=== PATIENT | male | born 1955 | race African-American/Black ===

== ENCOUNTER 2016-06-07 05:54 | Emergency (ER) | payer OTHER ==
[~2016-06-07] VITALS: Ht 188 cm; Wt 117.0 kg
[~2016-06-07 05:54] MED LIST: ADVAIR HFA 230M12 GM INH; ATIVAN1 MG PO; BAYER CHEWABLE81 MG PO; COUMADIN 5 MG TA5 M1 PO; DIASTAT2.5 MG RC; DILANTIN100 MG PO; DILANTIN30 MG PO; DUONEB 2.5-0.5 M3 ML INH; KEFLEX500 MG PO; LEVAQUIN 500 M500 M2 PO; NEPHROCAPS SOFT1 CAP PO; NORCO 5-325 TA1 EACH PO; PHOSLO667 M1 PO; PRILOSEC 20 MG20 MG PO; RENAL MULTIVIT1 EACH PO; RENVELA800 MG PO; SENSIPAR90 MG PO; TEGRETOL XR100 MG PO; TOPROL XL25 MG PO; TUMS PO; VENTOLIN HFA 1818 GM INH; ZOFRAN ODT4 M1 PO
[2016-06-07] MEDS ORDERED: ANTIBIOTIC (06:10)
[2016-06-07 07:59] LABS: HEMATOCRIT 34.1 % (42.0-52.0); HEMOGLOBIN 10.9 gm/dL (14.0-18.0); MCH 29.5 pg (26.0-34.0); MCV 92.3 fL (80.0-100.0); RBC 3.69 mil/uL (4.50-6.00); RDW 19.3 % (10.5-14.5); WBC 10.5 thou/uL (4.0-11.0)
[2016-06-07 08:15] LABS: CALCIUM 8.2 mg/dL (8.5-10.1); CREATININE 12.5 mg/dL (0.6-1.3)
[2016-06-07 08:23] LABS: POTASSIUM 6.6 mmol/L (3.5-5.1)
== END 2016-06-07 09:07 | disposition home or self-care (01) ==
LOC: ER 05:54
PROVIDERS: Emergency Medicine
DX: S31.104D Unspecified open wound of abdominal wall, left lower quadrant without penetration into peritoneal cavity, subsequent encounter (principal); E11.22 Type 2 diabetes mellitus with diabetic chronic kidney disease; I12.0 Hypertensive chronic kidney disease with stage 5 chronic kidney disease or end stage renal disease; N18.6 End stage renal disease; Z99.2 Dependence on renal dialysis; Z95.5 Presence of coronary angioplasty implant and graft; K21.9 Gastro-esophageal reflux disease without esophagitis; Z86.2 Personal history of diseases of the blood and blood-forming organs and certain disorders involving the immune mechanism; X58.XXXD Exposure to other specified factors, subsequent encounter

== ENCOUNTER → 2016-08-04 | Outpatient (CLI) | payer OTHER ==
[~2016-08-04] VITALS: Ht 185.4 cm; Wt 114.3 kg
[~2016-08-04] MED LIST changes: +ANTIBIOTIC; +VASOTEC10 MG PO
[2016-08-04 09:01] VITALS: BP 166/79
== END ==
LOC: SPEC 08:45
DX: Z53.9 Procedure and treatment not carried out, unspecified reason (principal); R07.9 Chest pain, unspecified; N18.6 End stage renal disease; J18.9 Pneumonia, unspecified organism; M54.9 Dorsalgia, unspecified; I47.2 Ventricular tachycardia; E87.5 Hyperkalemia; Z79.82 Long term (current) use of aspirin; R56.9 Unspecified convulsions

== ENCOUNTER → 2016-08-09 | Outpatient (CLI) | payer OTHER ==
[~2016-08-09] VITALS: Ht 185.4 cm; Wt 115.2 kg
[~2016-08-09] MED LIST changes: -VASOTEC10 MG PO
[2016-08-09 09:26] VITALS: BP 129/50
== END ==
LOC: HYPER → SPEC 06:00 → HYPER 06:36
DX: Z49.01 Encounter for fitting and adjustment of extracorporeal dialysis catheter (principal); I10 Essential (primary) hypertension; K21.9 Gastro-esophageal reflux disease without esophagitis; E89.2 Postprocedural hypoparathyroidism; R56.9 Unspecified convulsions; F17.210 Nicotine dependence, cigarettes, uncomplicated

== ENCOUNTER 2016-08-21 16:28 | Inpatient (IN) | payer OTHER, BC ==
[~2016-08-21] VITALS: Ht 185.4 cm; Wt 109.3 kg
--- NOTE | ~2016-08-21 | EKG ---
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[facility] : 1955 Requested By: Leander Elliott Order Number: [id number] MD: Anil Jimenez Measurements Intervals [place] Rate: 97 P: 54 VT: 177 QRS: 8 QRSD: 127 T: 158 QT: 377 QTc: 479 Interpretive Statements Sinus rhythm Left bundle branch block Compared to ECG 01/31/2016 14:21:42 Left bundle-branch block now present Supraventricular tachycardia no longer present Ventricular premature complex(es) no longer present Electronically Signed On 08-22-2016 7:07:44 CDT by Anil Jimenez [email or web address] <ELECTRONICALLY SIGNED> By: Anil Jimenez MD, [facility] 08/22/16 0707 1630 1630 Anil Jimenez MD, [facility] /EPI
--- NOTE | ~2016-08-21 | HC ---
Former[facility] [place] [address] CONSULTATION Name: FARZANEH VELASQUEZ Room #: 457-P ADM IN ..#: [id number] Admission: 08/21/16 Attend Phys: Brad Lora MD Discharge: Date of : 57 Report #: [id number] THIS REPORT FOR: //name// CC: Brad LOPEZ DATE OF SERVICE: 08/22/2016 DATE OF SERVICE: 08/22/2016 PATIENT IDENTIFICATION: This 61-year-old male is well known to our service from chronic outpatient dialysis management as well as recurrent hospital admissions. He has a complicated medical history which includes longstanding end-stage renal disease secondary to diabetes mellitus. He has had major difficulties with dialysis access. He has no upper extremity access possibility remaining at this time. He has been dialyzing ____ tunneled femoral dialysis catheter. He was recently admitted for a catheter exchange and was found to have extensive clot requiring IVC filter placement. He was to have been discharged on Eliquis but was unable to afford this medication, so has not been taking any of that. He also has a history of previous left leg and abdominal wound, which has undergone extensive treatment. 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 This has since been discontinued, as his wound has improved. He missed his recent outpatient followup with Dr. Dave for ongoing wound care. He denies fevers, chills, sweats or other constitutional complaints. PAST MEDICAL HISTORY: Remarkable for diabetes mellitus, end-stage renal disease, chronic wound, hypertension and COPD. He has been evaluated for a previous pulmonary mass with negative findings. He has sleep apnea and uses CPAP regularly by his report. He has undergone previous parathyroidectomy. SOCIAL HISTORY: He continues to smoke approximately 1.5 pack of cigarettes daily. MEDICATIONS: On admission includes enalapril 10 mg daily, Tums one with meals, omeprazole 20 mg daily, Nephrocaps 1 daily, Advair inhaler, Renvela, baby aspirin 81 mg daily, albuterol inhaler. ALLERGIES: He has reported allergies to ALTEPLASE, METOPROLOL, MILK AND CHLORAPREP. REVIEW OF SYSTEMS: Remarkable for shortness of breath. He denies productive cough or hemoptysis. He denies chest pain or palpitations. He denies nausea, vomiting, diarrhea or constipation. [facility] [address] [place] [address] CONSULTATION Name: FARZANEH VELASQUEZ Room #: 457-P [facility] IN [facility]#: [id number] Admission: 08/21/16 Attend Phys: Brad Lora MD Discharge: Date of : 57 Report #: [id number] PHYSICAL EXAMINATION: GENERAL: Reveals well developed, chronically ill, debilitated male in no acute distress. VITAL SIGNS: Temperature 36.4, pulse 98, respirations 24, blood pressure 114/54. SKIN: Warm and dry. There is a tunneled catheter in the right femoral region. There is no surrounding erythema. EXTREMITIES: There is a dressing in the left lower abdomen, which was not removed. There was no foul odor. HEENT: The head is normocephalic and atraumatic. The sclerae are white. The pharynx is benign. NECK: Supple. LUNGS: Martinez are grossly clear to percussion and auscultation. CARDIOVASCULAR: Reveals a regular rate and rhythm without rub. ABDOMEN: Soft and nontender. NEUROLOGIC: Reveals the patient to be alert and cooperative. LABORATORY STUDIES: Available at this time include sodium 136, potassium 6.6, chloride 99, CO2 22, BUN 57, creatinine 11.9, glucose 163, calcium 6.8. White blood cell count 6500, hemoglobin 9.1, hematocrit 28.3, platelet count 164,000. ASSESSMENT: 1. End-stage renal disease for dialysis today. 2. Chronic obstructive pulmonary disease exacerbation. 3. Recent clot about femoral dialysis catheter post vena cava filter placement. 4. Ongoing abdominal wound care with no biopsy proof of calciphylaxis. 5. Diabetes mellitus. 6. Chronic obstructive pulmonary disease. PLAN: The patient is undergoing treatment for COPD exacerbation. We will perform dialysis today for management of his acute hyperkalemia. We will follow the patient closely with serial laboratory studies, I and O and daily weights. Please see orders. <ELECTRONICALLY SIGNED> By: Cruz Saldivar MD 08/23/16 0734 0946 1317 Cruz Saldivar MD /nt
[2016-08-21 16:29] VITALS: BP 109/57
[2016-08-21] MEDS ORDERED: VASOTEC10 MG PO (16:38)
[2016-08-21 17:08] LABS: ABSOLUTE NEUTROPHILS 4.3 thou/uL (1.4-8.2); BASOPHILS 0.6 % (0.0-2.0); EOSINOPHILS 7.1 % (0.0-3.0); HEMATOCRIT 28.3 % (42.0-52.0); HEMOGLOBIN 9.1 gm/dL (14.0-18.0); LYMPHOCYTES 17.9 % (24.0-44.0); MCH 29.8 pg (26.0-34.0); MCHC 32.1 g/dL (28.0-37.0); MCV 92.9 fL (80.0-100.0); MONOCYTES 7.7 % (1.0-8.0); PLATELET COUNT 164 thou/uL (150-400); POLYS 66.7 % (36.0-66.0); RBC 3.04 mil/uL (4.50-6.00); RDW 23.6 % (10.5-14.5); WBC 6.5 thou/uL (4.0-11.0)
[2016-08-21 17:11] LABS: ANION GAP 11 mmol/L (7-16); BUN 48 mg/dL (7-18); CALCIUM 6.8 mg/dL (8.5-10.1); CHLORIDE 102 mmol/L (98-107); CO2 24 mmol/L (21-32); CREATININE 10.7 mg/dL (0.7-1.3); GLUCOSE 95 mg/dL (74-106); POTASSIUM 4.7 mmol/L (3.5-5.1); SODIUM 137 mmol/L (136-145)
[2016-08-21 17:13] LABS: MANUAL DIFF NO
[2016-08-21 17:18] LABS: ALBUMIN 3.1 g/dL (3.4-5.0); ALKALINE PHOSPHATASE 81 U/L (46-116); SGOT 18 U/L (15-37); SGPT 10 U/L (30-65); TOTAL BILIRUBIN 0.4 mg/dL (<0.1-1.0); TOTAL PROTEIN 7.1 g/dL (6.4-8.2); TROPONIN-I < 0.04 ng/mL (<0.04-0.07)
[2016-08-21 19:03] VITALS: BP 99/49
[2016-08-22 03:11] VITALS: BP 114/55
[2016-08-22 04:21] LABS: HEMATOCRIT 30.9 % (42.0-52.0); HEMOGLOBIN 9.9 gm/dL (14.0-18.0); MCH 29.8 pg (26.0-34.0); MCHC 31.9 g/dL (28.0-37.0); MCV 93.1 fL (80.0-100.0); RBC 3.32 mil/uL (4.50-6.00); RDW 23.8 % (10.5-14.5); WBC 4.4 thou/uL (4.0-11.0)
[2016-08-22 04:39] LABS: CALCIUM 7.3 mg/dL (8.5-10.1)
[2016-08-22 04:47] LABS: CREATININE 11.9 mg/dL (0.7-1.3)
[2016-08-22 04:50] LABS: POTASSIUM 6.4 mmol/L (3.5-5.1)
[2016-08-22 07:30] VITALS: BP 114/54
[2016-08-22 13:00] VITALS: BP 102/55
[2016-08-22 16:18] VITALS: BP 98/41
[2016-08-22 19:22] VITALS: BP 93/34
[2016-08-23 00:06] LABS: HEP B SURFACE Ab(ANTI-HBS Reactive (())
[2016-08-23 03:40] VITALS: BP 103/50
[2016-08-23 05:55] LABS: HEMATOCRIT 27.1 % (42.0-52.0); HEMOGLOBIN 8.7 gm/dL (14.0-18.0); MCH 29.5 pg (26.0-34.0); MCV 92.3 fL (80.0-100.0); RBC 2.93 mil/uL (4.50-6.00); RDW 23.9 % (10.5-14.5); WBC 4.6 thou/uL (4.0-11.0)
[2016-08-23 06:11] LABS: ALBUMIN 3.5 g/dL (3.4-5.0); CALCIUM 6.8 mg/dL (8.5-10.1); CREATININE 11.7 mg/dL (0.7-1.3); PHOSPHORUS 7.2 mg/dL (2.5-4.9)
[2016-08-23 08:43] VITALS: BP 102/46
[2016-08-23 11:57] VITALS: BP 106/65
[2016-08-23 16:04] VITALS: BP 131/74
[2016-08-23 16:29] LABS: INR 1.1
[2016-08-23 19:50] VITALS: BP 93/44
[2016-08-24 03:18] VITALS: BP 119/52
[2016-08-24 06:32] LABS: HEMATOCRIT 27.4 % (42.0-52.0); HEMOGLOBIN 8.7 gm/dL (14.0-18.0); MCH 29.8 pg (26.0-34.0); MCHC 31.6 g/dL (28.0-37.0); MCV 94.3 fL (80.0-100.0); RBC 2.91 mil/uL (4.50-6.00); RDW 23.4 % (10.5-14.5); WBC 6.2 thou/uL (4.0-11.0)
[2016-08-24 06:53] LABS: CREATININE 13.6 mg/dL (0.7-1.3); POTASSIUM 6.1 mmol/L (3.5-5.1)
[2016-08-24 07:56] VITALS: BP 119/52
[2016-08-24 09:19] LABS: ALBUMIN 3.6 g/dL (3.4-5.0); PHOSPHORUS 7.9 mg/dL (2.5-4.9)
[2016-08-24 11:45] VITALS: BP 103/50
[2016-08-24 13:32] LABS: POC CA IONIZED 3.4 mg/dL (4.5-5.3); POC HEMOGLOBIN 9.5 g/dL (14.0-18.0); POC POTASSIUM 4.9 mmol/L (3.5-5.1)
[2016-08-24 17:12] VITALS: BP 103/63
[2016-08-24 20:00] VITALS: BP 93/42
[2016-08-25 04:15] VITALS: BP 96/46
[2016-08-25 07:08] VITALS: BP 99/44
[2016-08-25 11:33] VITALS: BP 105/49
[2016-08-25] MEDS ORDERED: AUGMENTIN 500-1 EACH PO (12:47)
[2016-08-25] MEDS ORDERED: PREDNISONE 10 M10 MG PO (12:53)
[2016-08-25 13:12] VITALS: BP 105/49
[2016-08-25 13:28] VITALS: BP 105/49
[2016-08-25 13:29] VITALS: BP 105/49
== END 2016-08-25 14:06 | disposition home health service (06) | DRG 166 ==
LOC: ER 16:28 → 4W 18:00 → EROBS 18:00 → 4W 20:13
PROVIDERS: Emergency Medicine; Hospitalist; Internal Medicine Nephrology; Radiology Vascular & Interventional Radiology
PROC: 02HV3DZ Insertion of Intraluminal Device into Superior Vena Cava, Percutaneous Approach (ICD-10-PCS; principal; 2016-08-24)
PROC: 06PYX3Z Removal of Infusion Device from Lower Vein, External Approach (ICD-10-PCS; principal; 2016-08-24)
PROC: 06HM33Z Insertion of Infusion Device into Right Femoral Vein, Percutaneous Approach (ICD-10-PCS; principal; 2016-08-24)
PROC: B54BZZA Ultrasonography of Right Lower Extremity Veins, Guidance (ICD-10-PCS; principal; 2016-08-24)
PROC: 06H03DZ Insertion of Intraluminal Device into Inferior Vena Cava, Percutaneous Approach (ICD-10-PCS; principal; 2016-08-24)
DX: J96.21 Acute and chronic respiratory failure with hypoxia (principal); J15.6 Pneumonia due to other Gram-negative bacteria; N18.6 End stage renal disease; J44.1 Chronic obstructive pulmonary disease with (acute) exacerbation; E44.0 Moderate protein-calorie malnutrition; K21.9 Gastro-esophageal reflux disease without esophagitis; F17.210 Nicotine dependence, cigarettes, uncomplicated; I25.10 Atherosclerotic heart disease of native coronary artery without angina pectoris; E87.5 Hyperkalemia; Z88.8 Allergy status to other drugs, medicaments and biological substances; E89.0 Postprocedural hypothyroidism; Z91.011 Allergy to milk products; Z82.49 Family history of ischemic heart disease and other diseases of the circulatory system; Z79.82 Long term (current) use of aspirin; Z79.899 Other long term (current) drug therapy
CPT/HCPCS: 10045; 32100; 62110; 62900

== ENCOUNTER → 2016-09-06 | Outpatient (CLI) | payer OTHER, BC ==
[~2016-09-06] MED LIST changes: +AUGMENTIN 500-1 EACH PO; +PREDNISONE 10 M10 MG PO; +VASOTEC10 MG PO
== END ==
LOC: HYPER
DX: T81.89XA Other complications of procedures, not elsewhere classified, initial encounter (principal); E11.22 Type 2 diabetes mellitus with diabetic chronic kidney disease; I12.0 Hypertensive chronic kidney disease with stage 5 chronic kidney disease or end stage renal disease; N18.6 End stage renal disease; E66.09 Other obesity due to excess calories; I25.10 Atherosclerotic heart disease of native coronary artery without angina pectoris; K21.9 Gastro-esophageal reflux disease without esophagitis; J44.9 Chronic obstructive pulmonary disease, unspecified; F17.200 Nicotine dependence, unspecified, uncomplicated; Z99.2 Dependence on renal dialysis; Z94.0 Kidney transplant status; Y83.8 Other surgical procedures as the cause of abnormal reaction of the patient, or of later complication, without mention of misadventure at the time of the procedure

== ENCOUNTER 2016-09-11 14:02 | Inpatient (IN) | payer OTHER ==
[~2016-09-11] VITALS: Ht 185.4 cm; Wt 117.9 kg
--- NOTE | ~2016-09-11 | HC ---
[facility] [place] [address] CONSULTATION Name: FARZANEH VELASQUEZ Room #: 431-P ADM IN M.R.#: [id number] Admission: 09/12/16 Attend Phys: Barry Lopez DO Discharge: Date of : 57 Report #: [id number] THIS REPORT FOR: //name// CC: FAM unknown Marcell Chand DATE OF SERVICE: 09/11/2016 DATE OF ADMISSION: 09/11/2016. REASON FOR CONSULTATION: End-stage renal disease and hyperkalemia. HISTORY OF PRESENT ILLNESS: This patient is well known to our service with multiple admissions, is a chronic dialysis patient of [facility]. He presented with chest discomfort and shortness of breath. Chest x-ray was felt to be stable, but he had possibly some fluid overload and hyperkalemia with potassium of 6.2, and he was admitted for acute dialysis due to the hyperkalemia. PAST MEDICAL HISTORY: The patient is well known to our service, longstanding end-stage renal disease secondary to hypertension; rather severe COPD; heavy smoker for many years; sleep apnea, using CPAP; previous parathyroidectomy; previous pulmonary mass; recent abdominal and thigh wound, under prolonged treatment, now improving; dialyzes with a right femoral tunneled dialysis catheter. SOCIAL HISTORY: Heavy smoker. REVIEW OF SYSTEMS: CONSTITUTIONAL: He has been doing reasonably well. No fevers or chills. EYES: His vision is okay. ENT: Hearing okay. Swallows okay. No mouth sores or ulcers. ENDOCRINE: No diabetes or thyroid disease. RESPIRATORY: He is somewhat short winded, particularly with exertion. No cough or hemoptysis. CARDIAC: He had some nonspecific chest pain earlier, which has resolved. No palpitations. GENITOURINARY: Does not make any urine. GASTROINTESTINAL: Appetite okay. No nausea, vomiting or diarrhea. NEUROLOGIC: No weakness, history of stroke or seizure. HOME MEDICATIONS: Albuterol inhaler, aspirin 81 mg daily, Nephrocaps 1 daily, Tums 2 with meals t.i.d., enalapril 10 mg daily, Advair inhaler, omeprazole 20 mg daily, Renvela 2.4 g with meals. FAMILY HISTORY: Noncontributory. [facility] [address] [place] [address] CONSULTATION Name: FARZANEH VELASQUEZ Room #: 431-[facility] IN M.R.#: [id number] Admission: 09/12/16 Attend Phys: Barry Lopez DO Discharge: Date of : 57 Report #: [id number] PHYSICAL EXAMINATION: GENERAL: This is a chronically ill-appearing patient, does not appear currently in any acute distress. SKIN: Unremarkable. SKELETAL: Well developed, well nourished, somewhat overweight. HEENT: Extraocular movements are full. Vision intact. Hearing intact. Mucous membranes are moist. Tongue and buccal mucosa benign. NECK: Supple. CHEST: Rhonchi at the lung bases. HEART: Regular. ABDOMEN: Soft and nontender. Dressing over the left lower abdomen where he has the wound. EXTREMITIES: Remarkable for the tunneled dialysis catheter in the right thigh. LABORATORY DATA: Hemoglobin is 10.8, white count 7.4, platelets 112. Sodium 140, potassium 6.2. ASSESSMENT AND PLAN: 1. End-stage renal disease. He is volume overloaded and hyperkalemia. We have chosen to keep him and do an acute dialysis time tomorrow. We will proceed with that plan. 2. Hyperkalemia. 3. Congestive heart failure with volume overload. 4. Abdominal wound. 5. History of pulmonary mass. <ELECTRONICALLY SIGNED> By: Cruz Saldivar MD 09/13/16 0718 1709 0025 En Barbour MD /nt
--- NOTE | ~2016-09-11 | HC ---
[facility] [place] [address] CONSULTATION Name: FARZANEH VELASQUEZ Room #: 431-P ADM IN M.R.#: [id number] Admission: 09/12/16 Attend Phys: Barry Lopez DO Discharge: Date of : 57 Report #: [id number] THIS REPORT FOR: //name// CC: FAM rober Marcell Chand DATE OF SERVICE: 09/12/2016 PRIMARY PHYSICIAN: Lucie Chun NP. REASON FOR REFERRAL: Dyspnea. HISTORY OF PRESENT ILLNESS: The patient is a 61-year-old male who presents to the Emergency Room with dyspnea and chest pressure. A pulmonary consultation was requested. The patient has a very complicated medical history. He has longstanding history of end-stage renal disease due to diabetes mellitus. He also had significant vasculopathy. For his end-stage renal disease, AV fistula has been performed. His right upper extremity AV fistula was clotted. He has a left brachiocephalic stent. He currently has a right common femoral tunneled dialysis catheter. The patient also has IVC filter placed suprarenal. The patient states that he has been in his usual state of health until early yesterday morning, he was awoken with chest pressure and dyspnea. He also noted chest pressure, but denies any chest pain. No recent febrile illness. The patient does smoke. He smoked most of his life. He is trying to quit, smoking less than a pack a day. He states that he denies any past history of chronic lung disease. Chest x-ray performed on admission revealed previously noted left brachiocephalic stent, questionable mild narrowing of the distal trachea, mild right lower lung field infiltrates and atelectasis. PAST MEDICAL HISTORY: Remarkable for tobacco abuse for most of his life, multiple failed AV fistula with thrombosis as mentioned above, hypertension, end-stage renal disease, reflux disease, CHITRA on CPAP, diabetes mellitus type 2, chronic anemia, seizure disorder. PAST SURGICAL HISTORY: Status post parathyroidectomy, cardiac catheterization in 2003 and 2002, normal coronary arteries, multiple AV fistula surgeries due to thrombosis. ALLERGIES: He is allergic to ALTEPLASE, METOPROLOL, MILK and CHLORAPREP. [facility] [address] [place] [address] CONSULTATION Name: FARZANEH VELASQUEZ Room #: 431-P [facility] IN ..#: [id number] Admission: 09/12/16 Attend Phys: Barry Lopez DO Discharge: Date of : 57 Report #: [id number] HOME MEDICATIONS: Vasotec, Tums, Prilosec, Nephrocaps, Advair, Renvela, Ventolin 2 puffs p.r.n. FAMILY HISTORY: Remarkable for hypertension. SOCIAL HISTORY: Tobacco use as mentioned above. Denies any alcohol use. According to recent history, the patient had been smoking up to 2 packs a day last month. REVIEW OF SYSTEMS: As mentioned above, otherwise 10-point system review negative. PHYSICAL EXAMINATION: GENERAL: He is awake, alert, in no apparent distress. VITAL SIGNS: Temperature is 97.6 degrees Fahrenheit, pulse is 92, respiratory rate is 18, blood pressure is 96/53 mmHg, saturation is 98. HEENT: Normocephalic, atraumatic. NECK: Supple, without any lymphadenopathy or thyromegaly. CHEST: Breath sounds are fair with mild expiratory wheezes. CARDIOVASCULAR: Heart sounds, normal S1, S2. There are no murmurs or gallop. Pulses are 2+/4+ bilaterally. ABDOMEN: Soft, nontender, no organomegaly or masses felt. GENITOURINARY: Deferred. RECTAL: Deferred. EXTREMITIES: edema, cyanosis or clubbing. LABORATORY DATA: Chest x-ray as mentioned above, sodium 146, potassium 6.2, chloride 103, CO2 21, BUN 79, creatinine is 11.1. Liver function test is unremarkable. WBC 7400, hemoglobin is 10.8 without significant bandemia. Elevated eosinophil count is noted . ASSESSMENT AND PLAN: 1. Dyspnea in this 61-year-old male. It was likely related to exacerbation of chronic obstructive pulmonary disease. Maybe an element of volume overload also. 2. Long history of tobacco use, although the patient denies any history of chronic obstructive pulmonary disease. The patient appears to have chronic lung disease. 3. End-stage renal disease due to diabetes mellitus. 4. Hyperkalemia. 5. Chronic pleural thickening in the right chest along with mediastinal adenopathy noted in 2016. Chest x-ray as mentioned above showing questionable narrowing of the distal trachea. We will proceed with CT chest. 6. Polycystic kidney disease, multiple thrombosis. Consider history of thrombosis involving the arteriovenous fistula, status post inferior vena cava filter placement. [address] [address] CONSULTATION Name: RONFARZANEHJOHNNIE ADAN Room #: 431-P [facility] IN M.R.#: [id number] Admission: 09/12/16 Attend Phys: Barry Lopez DO Discharge: Date of : 57 Report #: [id number] RECOMMENDATION: Agree with corticosteroids, bronchodilators. We will proceed with CT chest regarding questionable mediastinal adenopathy along with past mediastinal adenopathy noted in 2016. DVT and GI prophylaxis will be addressed. Thank you for this consultation. <ELECTRONICALLY SIGNED> By: Clifford Hinojosa MD 09/13/16 1132 1202 194 Clifford Hinojosa MD /nt
--- NOTE | ~2016-09-11 | EKG ---
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
--- NOTE | ~2016-09-11 | HC ---
[facility] [place] [address] CONSULTATION Name: FARZANEH VELASQUEZ Room #: 431-P [facility] IN M.R.#: [id number] Admission: 09/12/16 Attend Phys: Barry Lopez DO Discharge: 09/13/16 Date of : 57 Report #: [id number] THIS REPORT FOR: //name// CC: FAM unknown Marcell Chand DATE OF SERVICE: 09/12/2016 DATE OF EVALUATION: 09/12/2016 CHIEF COMPLAINT: Surgical wound to the abdominal wall. HISTORY OF PRESENT ILLNESS: The patient is familiar to our service. He has a surgical wound to his left lower quadrant of his abdomen that is the result of a previously removed tunneled dialysis catheter. He has been using topical silver alginate and a gauze dressing. I have been asked to see him with regard to ongoing wound care. CURRENT PAST MEDICAL HISTORY: Positive for history of community-acquired pneumonia, end-stage renal disease requiring dialysis, hyperkalemia and recent chest wall pain. ALLERGIES: ALTEPLASE, METOPROLOL, and MILK. MEDICATIONS: Include Augmentin, prednisone, enalapril, calcium carbonate, omeprazole, fluticasone and salmeterol inhaler, Renvela, aspirin, albuterol. SOCIAL HISTORY: The patient is a smoker 1 pack per day since 1981. He has a history of previously negative cardiac cath. He has had previous AV fistulas failed in his left wrist and right AC region. He has had previous parathyroidectomy. FAMILY HISTORY: Positive for hypertension. REVIEW OF SYSTEMS: CONSTITUTIONAL: The patient denies fever or chills. PULMONARY: The patient complains of mild shortness of breath. GASTROINTESTINAL: nausea or abdominal pain. ORTHOPEDIC: Patient does note the ulceration or wound on his left abdominal wall. Other systems are negative other than that mentioned in the history of present illness. PHYSICAL EXAMINATION: VITAL SIGNS: At this time include temperature of 97.6, pulse 92, respiratory rate of 18, blood pressure 96/53. GENERAL: This is a somewhat chronically ill-appearing male patient who appears [facility] [address] [address] CONSULTATION Name: FARZANEH VELASQUEZ ANTIONETTE Room #: 431-P [facility] IN M.R.#: [id number] Admission: 09/12/16 Attend Phys: Barry Lopez DO Discharge: 09/13/16 Date of : 57 Report #: [id number] to be in distress. HEENT: Normocephalic. NECK: Supple. LUNGS: Clear. HEART: Regular rhythm. ABDOMEN: Soft. There is an incisional type wound in the left lower quadrant and is tender; however, it is very superficial. This is clean, granulating and showing evidence of epithelization, does not appear to be clinically infected. IMPRESSION: 1. Surgical wound to the abdominal wall that appears to be healing. There is some reference in his records that this may have been thought to be related to calciphylaxis. He had been in the past treated with sodium thiosulfate, however, he is not currently receiving that with dialysis. I find no record of biopsy proven calciphylaxis at this time. 2. End-stage renal disease, requiring dialysis. 3. Chronic obstructive pulmonary disease. 4. Diabetes mellitus. RECOMMENDATION: At this point in time, we recommend a Puracol Ag to the wound base, covered with Xeroform and an ABD to be changed daily. The silver alginate seemed to be sticking. The patient is agreeable to this plan of care. I appreciate being asked to see him in consultation. <ELECTRONICALLY SIGNED> By: Gilberto Schneider MD 09/13/16 1804 1833 0032 Gilberto Schneider MD /nt
[2016-09-11 14:03] VITALS: BP 113/52
[2016-09-11 14:42] LABS: HEMATOCRIT 33.7 % (42.0-52.0); HEMOGLOBIN 10.8 gm/dL (14.0-18.0); MCH 29.8 pg (26.0-34.0); MCHC 32.1 g/dL (28.0-37.0); MCV 92.8 fL (80.0-100.0); PLATELET COUNT 112 thou/uL (150-400); RBC 3.63 mil/uL (4.50-6.00); RDW 21.1 % (10.5-14.5); WBC 7.4 thou/uL (4.0-11.0)
[2016-09-11 14:50] LABS: MANUAL DIFF YES
[2016-09-11 15:02] LABS: ALBUMIN 3.4 g/dL (3.4-5.0); ALKALINE PHOSPHATASE 112 U/L (46-116); ANION GAP 16 mmol/L (7-16); BUN 79 mg/dL (7-18); CALCIUM 6.5 mg/dL (8.5-10.1); CHLORIDE 103 mmol/L (98-107); CO2 21 mmol/L (21-32); CREATININE 11.1 mg/dL (0.7-1.3); GLUCOSE 94 mg/dL (74-106); POTASSIUM 6.2 mmol/L (3.5-5.1); SGOT 30 U/L (15-37); SGPT 21 U/L (30-65); SODIUM 140 mmol/L (136-145); TOTAL BILIRUBIN 0.4 mg/dL (<0.1-1.0); TOTAL PROTEIN 7.1 g/dL (6.4-8.2); TROPONIN-I < 0.04 ng/mL (<0.04-0.07)
[2016-09-11 15:18] LABS: ABSOLUTE NEUTROPHILS 4.4 thou/uL (1.4-8.2); TOTAL CELL COUNT 100
[2016-09-11 15:20] LABS: ANISOCYTOSIS 2+; OVALOCYTES FEW; TARGET CELLS FEW
[2016-09-12 04:00] VITALS: BP 122/59
[2016-09-12 07:12] VITALS: BP 96/53
[2016-09-12 12:08] LABS: HEMOGLOBIN 10.9 gm/dL (14.0-18.0); MANUAL DIFF YES; MCH 29.7 pg (26.0-34.0); MCHC 32.1 g/dL (28.0-37.0); MCV 92.5 fL (80.0-100.0); PLATELET COUNT 106 thou/uL (150-400); RBC 3.68 mil/uL (4.50-6.00); RDW 21.4 % (10.5-14.5); WBC 5.6 thou/uL (4.0-11.0)
[2016-09-12 12:12] LABS: CALCIUM 7.1 mg/dL (8.5-10.1); POTASSIUM 5.8 mmol/L (3.5-5.1)
[2016-09-12 12:13] LABS: CREATININE 9.8 mg/dL (0.7-1.3)
[2016-09-12 12:32] LABS: ABSOLUTE NEUTROPHILS 4.9 thou/uL (1.4-8.2); TOTAL CELL COUNT 100
[2016-09-12 12:33] LABS: ANISOCYTOSIS 2+; POLYCHROMASIA OCCASIONAL
[2016-09-12 15:13] VITALS: BP 97/31
[2016-09-12 20:30] VITALS: BP 109/47
[2016-09-13 05:30] VITALS: BP 117/54
[2016-09-13 08:13] VITALS: BP 117/53
[2016-09-13 10:55] VITALS: BP 117/53
[2016-09-13 13:30] VITALS: BP 117/53
== END 2016-09-13 14:28 | disposition home health service (06) | DRG 189 ==
LOC: ER 14:02 → EROBS 17:03 → 4E 18:30
PROVIDERS: Family Medicine; Physician Assistant
PROC: 5A1D00Z (ICD-10-PCS; principal; 2016-09-12)
DX: J96.01 Acute respiratory failure with hypoxia (principal); J18.9 Pneumonia, unspecified organism; N18.6 End stage renal disease; J44.1 Chronic obstructive pulmonary disease with (acute) exacerbation; J44.0 Chronic obstructive pulmonary disease with (acute) lower respiratory infection; I47.2 Ventricular tachycardia; I13.2 Hypertensive heart and chronic kidney disease with heart failure and with stage 5 chronic kidney disease, or end stage renal disease; J90 Pleural effusion, not elsewhere classified; Q61.3 Polycystic kidney, unspecified; E87.5 Hyperkalemia; K21.9 Gastro-esophageal reflux disease without esophagitis; E89.0 Postprocedural hypothyroidism; I50.9 Heart failure, unspecified; E11.22 Type 2 diabetes mellitus with diabetic chronic kidney disease; F17.210 Nicotine dependence, cigarettes, uncomplicated; G47.33 Obstructive sleep apnea (adult) (pediatric); G40.909 Epilepsy, unspecified, not intractable, without status epilepticus; R59.0 Localized enlarged lymph nodes; Z95.828 Presence of other vascular implants and grafts; Z79.899 Other long term (current) drug therapy; Z99.2 Dependence on renal dialysis; Z88.8 Allergy status to other drugs, medicaments and biological substances; Z91.011 Allergy to milk products; Z82.49 Family history of ischemic heart disease and other diseases of the circulatory system
CPT/HCPCS: 10183; 32100

== ENCOUNTER 2016-11-09 05:16 | Emergency (ER) | payer OTHER ==
[~2016-11-09] VITALS: Ht 185.4 cm; Wt 113.4 kg
--- NOTE | ~2016-11-09 | EKG ---
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: QUE : 1955 Requested By: Jj Pickett Order Number: [id number] MD: Liban Ott Measurements Intervals [place] Rate: 99 P: 44 WV: 167 QRS: 9 QRSD: 124 T: 152 QT: 368 QTc: 473 Interpretive Statements Sinus rhythm Prolonged [place] interval Consider left atrial enlargement Left bundle branch block Compared to ECG 10/31/2016 07:00:30 First degree AV block now present Electronically Signed On 11-13-2016 21:48:05 CDT by Liban Ott [email or web address] <ELECTRONICALLY SIGNED> By: Liban Ott MD 11/13/16 2148 Liban Ott MD /[facility]
[2016-11-09 06:02] LABS: BASOPHILS 0.7 % (0.0-2.0); HEMATOCRIT 31.8 % (42.0-52.0); HEMOGLOBIN 9.8 gm/dL (14.0-18.0); LYMPHOCYTES 13.4 % (24.0-44.0); MCH 26.2 pg (26.0-34.0); MCHC 30.9 g/dL (28.0-37.0); MCV 84.7 fL (80.0-100.0); MONOCYTES 8.1 % (1.0-8.0); PLATELET COUNT 254 thou/uL (150-400); POLYS 72.8 % (36.0-66.0); RBC 3.75 mil/uL (4.50-6.00); RDW 22.2 % (10.5-14.5); WBC 8.2 thou/uL (4.0-11.0)
[2016-11-09 06:07] LABS: ANION GAP 15 mmol/L (7-16); BUN 68 mg/dL (7-18); CALCIUM 7.9 mg/dL (8.5-10.1); CHLORIDE 98 mmol/L (98-107); CO2 27 mmol/L (21-32); CREATININE 9.9 mg/dL (0.7-1.3); GLUCOSE 97 mg/dL (74-106); POTASSIUM 4.8 mmol/L (3.5-5.1); SODIUM 140 mmol/L (136-145)
[2016-11-09 06:09] LABS: MANUAL DIFF NO
[2016-11-09 06:14] LABS: APTT 37.7 Seconds (24.5-32.8); INR 1.1; PROTIME 11.5 Seconds (9.3-11.4)
[2016-11-09 06:22] LABS: ALBUMIN 2.8 g/dL (3.4-5.0); ALKALINE PHOSPHATASE 80 U/L (46-116); CK-MB MASS 1.5 ng/mL (<0.5-3.6); MAGNESIUM 2.4 mg/dL (1.8-2.4); NT-PRO BRAIN NAT PEPTIDE 18955 pg/mL (<300); SGOT 18 U/L (15-37); SGPT 10 U/L (30-65); TOTAL BILIRUBIN 0.4 mg/dL (<0.1-1.0); TOTAL PROTEIN 7.9 g/dL (6.4-8.2); TROPONIN-I < 0.04 ng/mL (<0.04-0.07)
[2016-11-09] MEDS ORDERED: LEVAQUIN 500 M500 M1 PO (10:04)
== END 2016-11-09 11:18 | disposition home or self-care (01) ==
LOC: ER 05:16
PROVIDERS: Emergency Medicine
DX: R07.9 Chest pain, unspecified (principal); M79.604 Pain in right leg; I12.0 Hypertensive chronic kidney disease with stage 5 chronic kidney disease or end stage renal disease; N18.6 End stage renal disease; F17.210 Nicotine dependence, cigarettes, uncomplicated; G47.30 Sleep apnea, unspecified; Z88.8 Allergy status to other drugs, medicaments and biological substances; Z99.2 Dependence on renal dialysis; Z91.011 Allergy to milk products

== ENCOUNTER → 2017-01-19 | Outpatient (CLI) | payer OTHER, BC ==
[~2017-01-19] MED LIST changes: +LEVAQUIN 500 M500 M1 PO
== END ==
LOC: HYPER
DX: T81.89XD Other complications of procedures, not elsewhere classified, subsequent encounter (principal); I73.9 Peripheral vascular disease, unspecified; E66.09 Other obesity due to excess calories; Z68.31 Body mass index [BMI] 31.0-31.9, adult; I12.0 Hypertensive chronic kidney disease with stage 5 chronic kidney disease or end stage renal disease; N18.6 End stage renal disease; Z99.2 Dependence on renal dialysis; I25.10 Atherosclerotic heart disease of native coronary artery without angina pectoris; K21.9 Gastro-esophageal reflux disease without esophagitis; J44.9 Chronic obstructive pulmonary disease, unspecified; F17.200 Nicotine dependence, unspecified, uncomplicated; Y83.8 Other surgical procedures as the cause of abnormal reaction of the patient, or of later complication, without mention of misadventure at the time of the procedure